=== PATIENT | female | born 1980 | race Caucasian/White ===

== ENCOUNTER 2022-11-14 10:36 | Emergency (ER) | payer OTHER ==
[~2022-11-14] VITALS: Ht 177 cm; Wt 72.0 kg
[2022-11-14] MEDS ORDERED: LIDOCAINE 2% VISCOUS 15 ML UDC PO ONE (10:45)
[2022-11-14] MEDS ORDERED: FAMOTIDINE 20 MG TABLET PO STA (10:45)
[2022-11-14] MEDS ORDERED: NS IV 1000 ML 1,000 ML IV STA (10:45)
[2022-11-14] MEDS ORDERED: ANTACID SUSPENSION 30 ML UDC PO ONE (10:45)
[2022-11-14] MEDS ORDERED: ASPIRIN 81 MG CHEWABLE TABLET PO ONE (10:45)
--- NOTE | 2022-11-14 10:50 | ED Cardiac General ---
History of Present Illness General Chief Complaint: Chest Pain Stated Complaint: NUMBNESS OF FEET | CHEST PAIN Nursing Triage Note: PT AMB TO RM 7 PT OF CHEST PAIN STARTED APPROX 45 MIN AGO. CO OF HEAVINESS RATES PAIN 6/10. CO OF NAUSEA, DIAPHORISIS. Source: patient Exam Limitations: no limitations History of Present Illness Date Seen by Provider: Nov 14, 2022 Time Seen by Provider: 10:38 Initial Comments 42-year-old female with no pertinent past medical history coming in due to chest pain. Started roughly 40 minutes ago, intermittent, pressure-like discomfort. She has never had pain like this before. Feels a little nauseous with that as well. Denies any prior history of DVT or PE, no recent surgery, no hormone use, no hemoptysis, no lower leg swelling or pain, no recent long travel, no personal cardiac history, no family history of blood clots. She is also denying any fever, cough, shortness of breath, abdominal pain, weakness, numbness, or any other concerns. She states she has been under quite a bit of stress lately with work. 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 She does drink roughly 9 glasses of wine per night, and has not recently stoppe d. 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 Allergies and Home Medications Allergies Coded Allergies: Sulfa (Sulfonamide Antibiotics) (Verified Allergy, Unknown, 11/14/22) Patient Home Medication List Home Medication List Reviewed: Yes Review of Systems Review of Systems Constitutional: No fever EENTM: No Symptoms Reported Respiratory: No Symptoms Reported Cardiovascular: See HPI Gastrointestinal: No Symptoms Reported Genitourinary: No Symptoms Reported Musculoskeletal: no symptoms reported Skin: no symptoms reported Psychiatric/Neurological: No Symptoms Reported Past Bpaxtox-Pesahn-Lodaxh Hx Patient Social History Tobacco Use?: Yes Tobacco type used: Cigarettes Smoking Status: Current Everyday Smoker Substance use?: No Alcohol Use?: Yes Alcohol type: Wine Alcohol Frequency: Daily Physical Exam Vital Signs Vital Signs - First Documented 11/14/22 10:36 Pulse 124 Resp 23 Pulse Ox 97 O2 Delivery Room Air Capillary Refill : Less Than 3 Seconds Height, Weight, BMI Height: '" Weight: lbs. oz. kg; 22.00 BMI Method: General Appearance: WD/WN, Anxious HEENT: PERRL/EOMI, Normal ENT Inspection, Pharynx Normal Neck: Full Range of Motion, Normal Inspection, Non Tender, Supple Respiratory: Chest Non Tender, Lungs Clear, Normal Breath Sounds, No Accessory Muscle Use, No Respiratory Distress Cardiovascular: Regular Rate, Rhythm, No Edema, Normal Peripheral Pulses Gastrointestinal: Normal Bowel Sounds, Non Tender, Soft; No Distended, No Guarding Extremity: Normal Capillary Refill, Normal Inspection, Normal Range of Motion, Non Tender, No Calf Tenderness, No Pedal Edema Neurologic/Psychiatric: Alert, No Motor/Sensory Deficits, Normal Mood/Affect Skin: Normal Color, Warm/Dry Progress/Results/Core Measures Results/Orders Lab Results Laboratory Tests Test 11/14/22 10:40 Range/Units White Blood Count 6.9 4.3-11.0 10^3/uL Red Blood Count 4.11 3.80-5.11 10^6/uL Hemoglobin 13.8 11.5-16.0 g/dL Hematocrit 40 35-52 % Mean Corpuscular Volume 96 80-99 fL Mean Corpuscular Hemoglobin 34 25-34 pg Mean Corpuscular Hemoglobin Concent 35 32-36 g/dL Red Cell Distribution Width 13.8 10.0-14.5 % Platelet Count 224 130-400 10^3/uL Mean Platelet Volume 8.9 L 9.0-12.2 fL Immature Granulocyte % (Auto) 0 % Neutrophils (%) (Auto) 68 42-75 % Lymphocytes (%) (Auto) 22 12-44 % Monocytes (%) (Auto) 8 0-12 % Eosinophils (%) (Auto) 1 0-10 % Basophils (%) (Auto) 1 0-10 % Neutrophils # (Auto) 4.7 1.8-7.8 10^3/uL Lymphocytes # (Auto) 1.5 1.0-4.0 10^3/uL Monocytes # (Auto) 0.5 0.0-1.0 10^3/uL Eosinophils # (Auto) 0.0 0.0-0.3 10^3/uL Basophils # (Auto) 0.1 0.0-0.1 10^3/uL Immature Granulocyte # (Auto) 0.0 0.0-0.1 10^3/uL Prothrombin Time 13.0 12.2-14.7 SEC INR Comment 1.0 0.8-1.4 Activated Partial Thromboplast Time 27 24-35 SEC D-Dimer 1.14 H 0.00-0.49 UG/ML Sodium Level 131 L 135-145 MMOL/L Potassium Level 3.7 3.6-5.0 MMOL/L Chloride Level 95 L 98-107 MMOL/L Carbon Dioxide Level 18 L 21-32 MMOL/L Anion Gap 18 H 5-14 MMOL/L Blood Urea Nitrogen 5 L 7-18 MG/DL Creatinine 0.71 0.60-1.30 MG/DL Estimat Glomerular Filtration Rate 107 BUN/Creatinine Ratio 7 Glucose Level 93 70-105 MG/DL Calcium Level 9.3 8.5-10.1 MG/DL Corrected Calcium 8.5-10.1 MG/DL Magnesium Level 1.8 1.6-2.4 MG/DL Total Bilirubin 0.6 0.1-1.0 MG/DL Aspartate Amino Transf (AST/SGOT) 281 H 5-34 U/L Alanine Aminotransferase (ALT/SGPT) 257 H 0-55 U/L Alkaline Phosphatase 38 L 40-136 U/L Troponin I < 0.028 <0.028 NG/ML Total Protein 7.9 6.4-8.2 GM/DL Albumin 4.7 H 3.2-4.5 GM/DL Lipase 26 8-78 U/L Thyroid Stimulating Hormone (TSH) 0.71 0.35-4.94 UIU/ML My Orders Orders - SETH STANFORD MD Ekg Tracing (11/14/22 10:37) Cbc With Automated Diff (11/14/22 10:45) Magnesium (11/14/22 10:45) Chest 1 View, Ap/Pa Only (11/14/22 10:45) Ekg Tracing (11/14/22 10:45) Comprehensive Metabolic Panel (11/14/22 10:45) Protime With Inr (11/14/22 10:45) Partial Thromboplastin Time (11/14/22 10:45) O2 (11/14/22 10:45) Monitor-Rhythm Ecg Trace Only (11/14/22 10:45) Ed Iv/Invasive Line Start (11/14/22 10:45) Lipase (11/14/22 10:45) Fibrin Degradation Products (11/14/22 10:45) Troponin I [place] (11/14/22 10:45) Aspirin Chewable Tablet (Aspirin Chewabl (11/14/22 10:45) Lidocaine 2% Viscous 15 Ml (Xylocaine Vi (11/14/22 10:45) Famotidine Tablet (Famotidine Tablet) (11/14/22 10:45) Antacid Suspension (Mylanta Suspension (11/14/22 10:45) Lorazepam Injection (Ativan Injection) (11/14/22 10:45) Ns Iv 1000 Ml (Sodium Chloride 0.9%) (11/14/22 10:45) Thyroid Stimulating Hormone (11/14/22 10:50) Ct Angio Chest W (R/O Pe) (11/14/22 11:26) Iohexol Injection (Omnipaque 350 Mg/Ml 1 (11/14/22 11:45) Received Contrast (Hold Metformin- Contr (11/14/22 11:45) Ns (Ivpb) 100 Ml (Sodium Chloride 0.9% 1 (11/14/22 11:45) Iohexol Injection (Omnipaque 350 Mg/Ml 1 (11/14/22 12:15) Received Contrast (Hold Metformin- Contr (11/14/22 12:15) Sodium Chloride Flush (Catheter Flush Sy (11/14/22 12:15) Ns (Ivpb) 100 Ml (Sodium Chloride 0.9% 1 (11/14/22 12:15) Medications Given in ED Current Medications Medications Dose Ordered Sig/Daryl Route Start Time Stop Time Status Last Admin Dose Admin Al Hydrox/Mg Hydrox/Simethicone 30 ml ONCE ONCE PO 11/14/22 10:45 11/14/22 10:47 DC 11/14/22 10:59 30 ML Aspirin 324 mg ONCE ONCE PO 11/14/22 10:45 11/14/22 10:47 DC 11/14/22 10:59 324 MG Iohexol 100 ml ONCE ONCE IV 11/14/22 11:45 11/14/22 12:20 DC 11/14/22 12:19 66 ML Lidocaine HCl 15 ml ONCE ONCE PO 11/14/22 10:45 11/14/22 10:47 DC 11/14/22 10:59 15 ML Sodium Chloride 10 ml NEEDED PRN IV 11/14/22 12:15 11/14/22 12:19 10 ML Sodium Chloride 100 ml ONCE ONCE IV 11/14/22 11:45 11/14/22 12:20 DC 11/14/22 12:19 100 ML Vital Signs/I&O 11/14/22 10:36 Pulse 124 Resp 23 B/P (MAP) Pulse Ox 97 O2 Delivery Room Air Progress Progress Note : Progress Note 42-year-old female presenting for chest pain. ABCs were intact and vitals were stable on presentation other than she is tachycardic. An IV was placed and basic labs were obtained including cardiac biomarkers. EKG ordered and interpreted by me showing sinus tachycardia with no acute ischemic changes. Chest x-ray ordered and interpreted by me showing no obvious pneumothorax and no other acute abnormalities. Troponin negative, creatinine normal, AST and ALT elevated, likely due to the alcohol intake which I discussed with her. D-dimer unfortunately elevated, CTA chest then obtained which was negative for PE. Patient feeling better after IV Ativan and IV fluids. Heart rate came down nicely. She is currently pain-free. I believe she stable for discharge with outpatient follow-up. She was sent home with strict return precautions Initial ECG Impression Date: Nov 14, 2022 Initial ECG Impression Time: 10:42 Initial ECG Rate: 120 Initial ECG Rhythm: S.Tach Comment Narrow QRS, normal axis, no significant ST changes or T wave abnormality Diagnostic Imaging Diagonstic Imaging: Xray (chest) Comments [facility], [place] NAME: RICARDO HUBER [facility] REC#: [id number] PT STATUS: REG ER : 1980 PHYSICIAN: SETH STANFORD MD ADMIT DATE: 11/14/22/ER Draft Date of Exam:11/14/22 CHEST 1 VIEW, AP/PA ONLY CLINICAL INDICATION: Patient with chest pain. EXAM: Portable chest x-ray upright view. COMPARISON: None. FINDINGS: Lungs/pleura: Lungs are clear. There is no pneumothorax. There is no pleural effusion. Mediastinum: Unremarkable. Pulmonary vasculature: Unremarkable. Heart: Unremarkable. Bones/extrathoracic soft tissue: Hypertrophic spurs involving the thoracic spine. IMPRESSION: There is no radiographic evidence of acute cardiopulmonary process. Dictated on workstation # [id number] Dict: 11/14/22 1121 Trans: 11/14/22 1122 [facility] [id number] Interpreted by: RITA FRANCO MD Electronically signed by: [facility], [place] NAME: RICARDO HUBER [facility] REC#: [id number] PT STATUS: REG ER : 1980 PHYSICIAN: SETH STANFORD MD ADMIT DATE: 11/14/22/ER Signed Date of Exam:11/14/22 CT ANGIO CHEST W (R/O PE) TECHNIQUE: CTA of the chest was performed with contrast bolus timing optimized for evaluation of the pulmonary arteries. 3-D reformats were obtained and reviewed. Dose reduction techniques were utilized. REASON FOR EXAM: Chest pain. Chest heaviness. COMPARISON: Chest radiograph performed earlier the same date. FINDINGS: This helical CT pulmonary angiogram is diagnostic to the subsegmental level branches of the pulmonary artery and demonstrates no pulmonary emboli. The heart and great vessels are unremarkable. There is no pericardial effusion. There is no axillary, mediastinal, or hilar adenopathy. The lungs demonstrate no consolidation, nodules, or other parenchymal abnormality. No pleural effusion is seen. Osseous structures appear normal. There is hepatic steatosis. IMPRESSION: 1. No acute pulmonary embolus. Negative CT chest. 2. Hepatic steatosis. Dictated by: Dictated on workstation # [id number] Dict: 11/14/22 1223 Trans: 11/14/22 1229 CV [id number] Interpreted by: SHARATH KINGSLEY DO Electronically signed by: SHARATH KINGSLEY DO 11/14/22 1229 Departure Impression Primary Impression: Chest pain Qualified Codes: R07.82 - Intercostal pain Additional Impression: Transaminitis Disposition: 01 HOME, SELF-CARE Condition: Stable Departure-Patient Inst. Decision time for Depature: 12:45 Referrals: NO,LOCAL PHYSICIAN (PCP/Family) Primary Care Physician Patient Instructions: Chest Pain (DC) Add. Discharge Instructions: We are not seeing any evidence of life-threatening causes of chest pain at this time. If it comes back, we would recommend rapid follow-up again, and potentially referral to a box cutter. Your AST and ALT were also elevated, this is likely secondary to alcohol intake, but would be beneficial for you to follow-up with a GI specialist as an outpatient. Work/School Note: Work Release Form Date Seen in the Emergency Department: Nov 14, 2022 Return to Work: Nov 15, 2022 Restrictions: No Restrictions SETH STANFORD MD Nov 14, 2022 10:50
[2022-11-14 10:51] LABS: BASOPHILS # (AUTO) 0.1 10^3/uL (0.0-0.1); BASOPHILS % (AUTO) 1 % (0-10); EOSINOPHILS % (AUTO) 1 % (0-10); HEMATOCRIT 40 % (35-52); HEMOGLOBIN 13.8 g/dL (11.5-16.0); LYMPHOCYTES # (AUTO) 1.5 10^3/uL (1.0-4.0); LYMPHOCYTES % (AUTO) 22 % (12-44); MEAN CORPUSCULAR HEMOGLOBIN 34 pg (25-34); MEAN CORPUSCULAR HGB CONC 35 g/dL (32-36); MEAN CORPUSCULAR VOLUME 96 fL (80-99); MEAN PLATELET VOLUME 8.9 fL (9.0-12.2); MONOCYTES # (AUTO) 0.5 10^3/uL (0.0-1.0); MONOCYTES % (AUTO) 8 % (0-12); NEUTROPHILS # (AUTO) 4.7 10^3/uL (1.8-7.8); NEUTROPHILS % (AUTO) 68 % (42-75); PLATELET COUNT 224 10^3/uL (130-400); WHITE BLOOD COUNT 6.9 10^3/uL (4.3-11.0)
[2022-11-14 11:06] LABS: ALBUMIN 4.7 GM/DL (3.2-4.5); CHLORIDE 95 MMOL/L (98-107); POTASSIUM 3.7 MMOL/L (3.6-5.0); SODIUM 131 MMOL/L (135-145)
[2022-11-14 11:08] LABS: CALCIUM 9.3 MG/DL (8.5-10.1)
[2022-11-14 11:09] LABS: GLUCOSE 93 MG/DL (70-105); TOTAL PROTEIN 7.9 GM/DL (6.4-8.2)
[2022-11-14 11:10] LABS: CARBON DIOXIDE 18 MMOL/L (21-32); FIBRIN DEGRADATION PRODUCTS 1.14 UG/ML (0.00-0.49)
[2022-11-14 11:11] LABS: BILIRUBIN,TOTAL 0.6 MG/DL (0.1-1.0)
[2022-11-14 11:12] LABS: ALKALINE PHOSPHATASE 38 U/L (40-136); CREATININE SERUM 0.71 MG/DL (0.60-1.30); GFR ESTIMATED 107
[2022-11-14 11:13] LABS: BUN/CREATININE RATIO 7
[2022-11-14 11:15] LABS: ALANINE AMINOTRANSFERASE 257 U/L (0-55); MAGNESIUM 1.8 MG/DL (1.6-2.4)
[2022-11-14 11:16] LABS: LIPASE 26 U/L (8-78)
--- NOTE | 2022-11-14 11:23 | Diagnostic Imaging Report ---
CLINICAL INDICATION: Patient with chest pain. EXAM: Portable chest x-ray upright view. COMPARISON: None. FINDINGS: Lungs/pleura: Lungs are clear. There is no pneumothorax. There is no pleural effusion. Mediastinum: Unremarkable. Pulmonary vasculature: Unremarkable. Heart: Unremarkable. Bones/extrathoracic soft tissue: Hypertrophic spurs involving the thoracic spine. IMPRESSION: There is no radiographic evidence of acute cardiopulmonary process. Dictated by: Dictated on workstation # [id number]
[2022-11-14] MEDS ORDERED: HOLD METFORMIN - RECEIVED CONTRAST 20 ML VIAL IV SCH ×2 (11:45→12:15)
[2022-11-14] MEDS ORDERED: NS 100 ML (IVPB) BAG IV ONE ×2 (11:45→12:15)
[2022-11-14] MEDS ORDERED: IOHEXOL 350 MG/ML 100 ML (OMNIPAQUE 350) VIAL IV ONE ×2 (11:45→12:15)
[2022-11-14] MEDS ORDERED: CATHETER FLUSH 10 ML SYR IV PRN (12:15)
--- NOTE | 2022-11-14 12:27 | Diagnostic Imaging Report ---
TECHNIQUE: CTA of the chest was performed with contrast bolus timing optimized for evaluation of the pulmonary arteries. 3-D reformats were obtained and reviewed. Dose reduction techniques were utilized. REASON FOR EXAM: Chest pain. Chest heaviness. COMPARISON: Chest radiograph performed earlier the same date. FINDINGS: This helical CT pulmonary angiogram is diagnostic to the subsegmental level branches of the pulmonary artery and demonstrates no pulmonary emboli. The heart and great vessels are unremarkable. There is no pericardial effusion. There is no axillary, mediastinal, or hilar adenopathy. The lungs demonstrate no consolidation, nodules, or other parenchymal abnormality. No pleural effusion is seen. Osseous structures appear normal. There is hepatic steatosis. IMPRESSION: 1. No acute pulmonary embolus. Negative CT chest. 2. Hepatic steatosis. Dictated by: Dictated on workstation # [id number]
[2022-11-14 12:51] VITALS: BP 138/102
== END 2022-11-14 12:56 | disposition home or self-care (01) ==
LOC: ER 10:38
DX: R07.9 Chest pain, unspecified (principal); R74.01 Elevation of levels of liver transaminase levels; R00.0 Tachycardia, unspecified; R79.89 Other specified abnormal findings of blood chemistry; F17.210 Nicotine dependence, cigarettes, uncomplicated
CPT/HCPCS: 36415; 71045; 71275; 80053; 83690; 83735; 84443; 84484; 85025; 85379; 85610; 85730; 93005; 93041